=== PATIENT | male | born 2000 | race African-American/Black ===

== ENCOUNTER 2025-09-23 23:29 | Emergency (ER) | payer SELFPAY ==
[~2025-09-23] VITALS: Ht 177.8 cm; Wt 90.7 kg
[2025-09-23 23:57] VITALS: BP 157/99; PULSE 88; RESP 22; TEMP 98.4; O2SAT 100
[2025-09-24] MEDS ORDERED: MORPHINE SULFATE ONE (00:20)
[2025-09-24 00:21] LABS: BASOPHIL # 0.0 10^3/uL (0.0-0.1); BASOPHIL % 0.2 % (0.2-1.2); EOSINOPHIL # 0.2 10^3/uL (0.0-0.2); EOSINOPHIL % 2.4 % (0.0-5.0); HEMATOCRIT(ML) 42.9 % (37.0-53.0); IG % 0.60 % (0.00-0.50); LYMPHOCYTES # 2.33 10^3/uL1 (1.0-4.8); LYMPHOCYTES % 27.9 % (24.0-44.0); MEAN CORP HGB 28.7 pg (26-34); MEAN CORP HGB CONCENTRATION 34.0 g/dL (33-36.5); MEAN CORP VOLUME 84.3 fL (78-100); MONOCYTES # 0.8 10^3/uL (0.3-0.8); MONOCYTES % 9.6 % (5.0-12.0); NEUTROPHIL # 5.0 10^3/uL (1.8-7.7); NEUTROPHILS % 59.3 % (41.0-85.0); RED BLOOD CELL 5.09 10^6/uL (4.50-5.90); RED CELL DISTRIBUTION WIDTH 12.2 % (11.5-14.5); WHITE BLOOD CELL 8.4 10^3/uL (4.5-11.0)
[2025-09-24] MEDS: MORPHINE SULFATE IV STA (00:25)
[2025-09-24 00:36] LABS: ALANINE AMINOTRANSFERASE(ML) 42.0 U/L (12-78); ALBUMIN(ML) 4.1 g/dL (3.4-5.0); CREATININE SERUM 1.06 mg/dL (0.59-1.40); EST GFR, NON-AA 84.4 (>/=60)
[2025-09-24 00:53] VITALS: BP 145/71; PULSE 88; RESP 20; TEMP 98.4; O2SAT 100
[2025-09-24 01:17] LABS: APPEARANCE,URINE CLEAR; LEUKOCYTE ESTERASE ,URINE NEGATIVE (NEGATIVE); NITRATE,URINE NEGATIVE (NEGATIVE); UA COLOR YELLOW
[2025-09-24] MEDS: TORADOL IV STA (01:30)
[2025-09-24] MEDS ORDERED: TORADOL ONE (01:33)
[2025-09-24 01:55] VITALS: BP 138/76; PULSE 87; RESP 18; TEMP 98.4; O2SAT 100
[2025-09-24] MEDS ORDERED: KLOR-CON PO ONE (02:38)
[2025-09-24 02:39] VITALS: BP 133/78; PULSE 65; RESP 18; TEMP 98.4; O2SAT 100
[2025-09-24] MEDS: KLOR-CON PO STA (02:44)
== END 2025-09-24 02:42 | disposition home or self-care (01) ==
LOC: ER 23:29
DX: K80.60 Calculus of gallbladder and bile duct with cholecystitis, unspecified, without obstruction (principal)
CPT/HCPCS: 99285; 74177; 96374; 96375; 80053; 85025; 36415; 81001; 83690; 93005; J1885; J2270; J3490; Q9967; Q9965